=== PATIENT | female | born 2000 | race American Indian/Alaskan Native ===

== ENCOUNTER 2019-05-30 12:00 | Observation (INO) | payer OTHER ==
[2019-05-30 12:04] VITALS: BP 131/83
--- NOTE | 2019-05-30 12:08 | Event Note ---
ED Screening Note Date of service: 05/30/19 Time: 12:06 ED Screening Note: Pt complains of dizziness, blurred vision, and pins and needles feeling x 5 days +CALDWELL hx of MS-states feels like her normal flare states not currently on meds for MS This initial assessment/diagnostic orders/clinical plan/treatment(s) is/are subject to change based on patients health status, clinical progression and re- assessment by fellow clinical providers in the ED. Further treatment and workup at subsequent clinical providers discretion. Patient/guardian urged not to elope from the ED as their condition may be serious if not clinically assessed and managed. Initial orders include: labs
[2019-05-30 12:32] LABS: Basophils % (Auto) 0.8 % (0.0-1.8); Eosinophils # (Auto) 0.2 K/mm3 (0.0-0.4); Eosinophils % (Auto) 2.6 % (0.0-4.3); Hematocrit 40.1 % (30.3-42.9); Hemoglobin 13.5 gm/dl (10.1-14.3); Lymphocytes # (Auto) 1.6 K/mm3 (1.2-5.4); Lymphocytes % (Auto) 25.9 % (13.4-35.0); Mean Corpuscular HGB Conc 34 % (30-34); Mean Corpuscular Volume 87 fl (79-97); Monocytes # (Auto) 0.4 K/mm3 (0.0-0.8); Monocytes % (Auto) 6.4 % (0.0-7.3); Platelet Count 300 K/mm3 (140-440); Red Blood Count 4.64 M/mm3 (3.65-5.03); Red Cell Distribution Width 16.1 % (13.2-15.2)
[2019-05-30 12:47] LABS: Alanine Aminotransferase 9 units/L (7-56); Albumin 4.5 g/dL (3.9-5); BUN/Creatinine Ratio 19; Blood Urea Nitrogen 17 mg/dL (7-17); Calcium 9.6 mg/dL (8.4-10.2); Hemolysis Index 11
--- NOTE | 2019-05-30 15:10 | Emergency Department Report ---
ED General Adult HPI - General Chief complaint: Dizziness Stated complaint: DIZZINESS/BLURRED VISION/MIGRAINE Time Seen by Provider: 05/30/19 12:05 Source: patient Mode of arrival: Ambulatory Limitations: No Limitations - History of Present Illness Initial comments: CC: "I am having a relapse of my MS." HPI: Seble is a 19 yo female with hx of multiple sclerosis. She was diagnosed one year ago. Recently moved from [place]. She does not havea neurologist in the [place] area. Treated at OSH in February with prednisone and tramadol, She did not improve when h had similar symptoms at that time. For the past 5 days,she has had headache, blurry vision, body burning, lightheadedness, tremors. she requests methylprednisolone. Mild frontal dull headache gradual onset typical of previous headaches. -: Gradual, days(s) (5) Location: head, left, right, upper extremity, lower extremity Severity scale (0 -10): 8 Quality: burning (burning body pain), dull (dull headache) Consistency: constant Improves with: other (methylprednisolone in the past) Worsens with: none Associated Symptoms: headaches, malaise, other (lightheadedness blurred vision) Treatments Prior to Arrival: none - Related Data Allergies Allergy/AdvReac Type Severity Reaction Status Date / Time No Known Allergies Allergy Unverified 05/30/19 12:04 ED Review of Systems ROS: Stated complaint: DIZZINESS/BLURRED VISION/MIGRAINE Other details as noted in HPI Comment: All other systems reviewed and negative Constitutional: malaise. denies: fever Respiratory: denies: cough Cardiovascular: denies: chest pain Gastrointestinal: denies: abdominal pain, nausea, vomiting Neurological: headache, paresthesias ED Past Medical Hx - Past Medical History Previous Medical History?: Yes Additional medical history: Multiple Sclerosis - Surgical History Past Surgical History?: No - Social History Smoking Status: Never Smoker Substance Use Type: Marijuana ED Physical Exam - General Limitations: No Limitations General appearance: alert, in no apparent distress - Head Head exam: Present: atraumatic, normocephalic - Eye Eye exam: Present: normal appearance - ENT ENT exam: Present: mucous membranes moist - Neck Neck exam: Present: normal inspection, full ROM - Respiratory Respiratory exam: Present: normal lung sounds bilaterally. Absent: respiratory distress, wheezes, rales, rhonchi - Cardiovascular Cardiovascular Exam: Present: regular rate, normal rhythm, normal heart sounds. Absent: systolic murmur, diastolic murmur, rubs, gallop - GI/Abdominal GI/Abdominal exam: Present: soft, normal bowel sounds. Absent: distended, tenderness, guarding, rebound - Extremities Exam Extremities exam: Present: normal inspection - Neurological Exam Neurological exam: Present: alert, oriented X3, CN II-XII intact, normal gait. Absent: motor sensory deficit - Psychiatric Psychiatric exam: Present: normal affect, normal mood - Skin Skin exam: Present: warm, dry, intact, normal color. Absent: rash ED Course Vital Signs 05/30/19 12:03 Temperature 98.4 F Pulse Rate 86 Respiratory 16 Rate Blood Pressure 131/83 O2 Sat by Pulse 100 Oximetry ED Medical Decision Making - Lab Data Result diagrams: 05/30/19 12:11 05/30/19 12:11 Laboratory Results - last 24 hr 05/30/19 05/30/19 12:11 12:11 WBC 6.0 RBC 4.64 Hgb 13.5 Hct 40.1 MCV 87 MCH 29 MCHC 34 RDW 16.1 H Plt Count 300 Lymph % (Auto) 25.9 [place] % (Auto) 6.4 Eos % (Auto) 2.6 Baso % (Auto) 0.8 Lymph # 1.6 [place] # 0.4 Eos # 0.2 Baso # 0.0 Seg Neutrophils % 64.3 Seg Neutrophils # 3.9 Sodium 138 Potassium 4.0 Chloride 103.4 Carbon Dioxide 22 Anion Gap 17 BUN 17 Creatinine 0.9 Estimated GFR > 60 BUN/Creatinine Ratio 19 Glucose 81 Calcium 9.6 Total Bilirubin 0.30 AST 19 ALT 9 Alkaline Phosphatase 52 Total Protein 7.9 Albumin 4.5 Albumin/Globulin Ratio 1.3 - Medical Decision Making Seble presents with exacerbation of multiple sclerosis. She will be admitted to the hospitalist service for high-dose IV steroid therapy. Critical care attestation.: If time is entered above; I have spent that time in minutes in the direct care of this critically ill patient, excluding procedure time. ED Disposition Clinical Impression: Exacerbation of multiple sclerosis Disposition: TO HOME OR SELFCARE Is pt being admited?: Yes Does the pt Need Aspirin: No Condition: Stable
--- NOTE | 2019-05-30 15:59 | Event Note ---
Date: 05/30/19 19-year-old with history of multiple sclerosis --no residual deficits comes in for blurry vision nausea and slight weakness in both lower extremities. On examination Vision is normal Power is 5 x 5 in all 4 extremities Gait is normal Walks slowly No scanning speech No diplopia Discharge diagnosis Possible MS exacerbation--- but more unlikely Will give benefit of doubt IV Solu-Medrol 1 g x 1 dose Tapering dose of prednisone 40 mg for first 5 days followed by 30 mg of prednisone for the next 5 days followed by 20 mg of prednisone for the next 5 days followed by 10 mg of prednisone for the next 5 days and then stop. Follow-[facility] with [facility] and Dr. Kalin quezada
[2019-05-30] MEDS ORDERED: methylPREDNISolone Sod Suc 1,000 MG in SODIUM CHLORIDE 0.9% 250ML 250 ML IV ONE (16:00)
== END 2019-05-30 17:29 | disposition home or self-care (01) ==
LOC: ED 12:00 → 3A 15:02 → INTOOBSV 15:02 → 3A 15:48
PROVIDERS: ADMIT Internal Medicine; ATTEND Internal Medicine
DX: G35 Multiple sclerosis (principal); R42 Dizziness and giddiness; F12.90 Cannabis use, unspecified, uncomplicated
CPT/HCPCS: 36415; 80053; 85025; 96365; 99284; G0378; J2930; J7050; 99283

== ENCOUNTER 2019-06-01 12:11 | Inpatient (IN) | payer OTHER ==
--- NOTE | 2019-06-01 13:47 | Event Note ---
ED Screening Note ED Screening Note: 19 y/o female with pmh of MS presents to ED c/o worsening flare up was seen a couple days ago and refused admission and now wants to accept all recommend treatments. symptoms have evolved to include chest pain and sob in relation to the blurred vision, weakness, dizziness, and myalgia. The patient was seen in triage for as above Labs/imaging ordered to evaluate for a cause of this complaint. Vital signs reviewed, patient awake and alert in NAD. This initial assessment/diagnostic orders/clinical plan/treatment(s) is/are subject to change based on patients health status, clinical progression and re- assessment by fellow clinical providers in the ED. Further treatment and workup at subsequent clinical providers discretion. Patient/guardian urged not to elope from the ED as their condition may be serious if not clinically assessed and managed. Initial orders include:
--- NOTE | 2019-06-01 15:00 | Emergency Department Report ---
ED Chest Pain HPI - General Chief Complaint: Chest Pain Stated Complaint: MS RELASPED/CHEST PAIN Time Seen by Provider: 06/01/19 13:44 Source: patient Mode of arrival: Ambulatory Limitations: No Limitations - History of Present Illness Initial Comments: This is a pleasant 19-year-old female with past medical history of multiple sclerosis which was diagnosed June 2018 who presents the emergency department with a chief complaint of headache, dizziness, blurred vision, tremors and paresthesias and a burning sensation to her body. She reports these symptoms are typical for her normal MS flare symptoms. She just recently relocated from [place] and does not have a neurologist established locally yet. She was seen in the ER a few days ago and physician he saw her recommend admission however the patient declined and wanted to go home. Patient states she thinks she should've state due to her persistent symptoms. She states that she is having new symptoms of pain substernally in her chest that she describes as pressure. She denies any radiating pain. States pain is aggravated with exertion and is associated nausea. - Related Data Allergies Allergy/AdvReac Type Severity Reaction Status Date / Time No Known Allergies Allergy Unverified 05/30/19 12:04 Heart Score - HEART Score History: Slightly suspicious EKG: Normal Age: < 45 Risk factors: No known risk factors Troponin: < normal limit HEART Score: 0 ED Review of Systems ROS: Stated complaint: MS RELASPED/CHEST PAIN Other details as noted in HPI Comment: All other systems reviewed and negative Constitutional: denies: chills, fever Eyes: denies: eye pain, eye discharge, vision change ENT: denies: ear pain, throat pain Respiratory: denies: cough, shortness of breath, wheezing Cardiovascular: denies: chest pain, palpitations Endocrine: no symptoms reported Gastrointestinal: denies: abdominal pain, nausea, diarrhea Genitourinary: denies: urgency, dysuria, discharge Musculoskeletal: denies: joint swelling, arthralgia Skin: denies: rash, lesions Neurological: as per HPI, headache, weakness, paresthesias Psychiatric: denies: anxiety, depression Hematological/Lymphatic: denies: easy bleeding, easy bruising ED Past Medical Hx - Past Medical History Previous Medical History?: Yes Additional medical history: Multiple Sclerosis. fibroids - Surgical History Past Surgical History?: Yes Additional Surgical History: myomectomy - Social History Smoking Status: Current Some Day Smoker Substance Use Type: Alcohol ED Physical Exam - General Limitations: No Limitations General appearance: alert, in no apparent distress - Head Head exam: Present: atraumatic, normocephalic - Eye Eye exam: Present: normal appearance, PERRL, EOMI Pupils: Present: normal accommodation - ENT ENT exam: Present: normal exam, normal orophraynx, mucous membranes moist - Neck Neck exam: Present: normal inspection, full ROM. Absent: tenderness, meningismus - Respiratory Respiratory exam: Present: normal lung sounds bilaterally. Absent: respiratory distress, wheezes, rales, rhonchi, stridor - Cardiovascular Cardiovascular Exam: Present: regular rate, normal rhythm, normal heart sounds. Absent: systolic murmur, diastolic murmur, rubs, gallop - GI/Abdominal GI/Abdominal exam: Present: soft, normal bowel sounds. Absent: distended, tenderness, guarding, rebound, rigid - Extremities Exam Extremities exam: Present: normal inspection, full ROM, calf tenderness (negative sophie sign bilaterally ). Absent: tenderness - Back Exam Back exam: Present: normal inspection, full ROM. Absent: tenderness, CVA tenderness (R), CVA tenderness (L) - Neurological Exam Neurological exam: Present: alert, oriented X3, CN II-XII intact, other (normal sensation to the upper and lower extremities. reported weakness to the lower extremities but no drift. unable to tolerate resistive ROM. ) - Psychiatric Psychiatric exam: Present: normal affect, normal mood - Skin Skin exam: Present: warm, dry, intact, normal color. Absent: rash ED Course Vital Signs 06/01/19 13:42 Temperature 98.2 F Pulse Rate 83 Respiratory 18 Rate Blood Pressure 123/71 O2 Sat by Pulse 100 Oximetry PAUL score - Paul Score Age > 65: (0) No Aspirin use within the Past 7 Days: (0) No 3 or more CAD Risk Factors: (0) No 2 or more Angina events in past 24 hrs: (0) No Known CAD with more than 50% Stenosis: (0) No Elevated Cardiac Markers: (0) No ST Deviation Greater than 0.5mm: (0) No PAUL Score: 0 ED Medical Decision Making - Lab Data Result diagrams: 06/01/19 15:07 06/01/19 15:07 - EKG Data -: EKG Interpreted by Ks EKG shows normal: sinus rhythm Rate: normal - EKG Data When compared to previous EKG there are: previous EKG unavailable 06/01/19 15:15 EKG performed at 12:21 pm normal sinus rhythm, no acute ST or T-wave abnormalities, no STEMI, normal axis, normal intervals. - Radiology Data Radiology results: report reviewed Patient: ELAN LOCKETT MR#: [id number] : 2000 Acct:[id number] Age/Sex: 19 / F ADM Date: 06/01/19 Loc: ED Attending Dr: Ordering Physician: SHU SEGUNDO Date of Service: 06/01/19 Procedure(s): CT head/brain wo con Accession Number(s): [id number] cc: SHU SEGUNDO CT HEAD WITHOUT CONTRAST INDICATION / CLINICAL INFORMATION: weakness, MS, blurred vision. TECHNIQUE: Axial imaging performed from the skull apex through the skull base without the use of contrast. Sagittal and coronal reformatted images. All CT scans at this location are performed using CT dose reduction for ALARA by means of automated exposure control. COMPARISON: None available. FINDINGS: CEREBRAL PARENCHYMA: There is a solitary subtle centimeter area of diminished attenuation in the right parietal white matter on image 36, series 2. This is a nonspecific finding but could be related to demyelination. The remaining brain parenchyma demonstrates normal density. HEMORRHAGE: None. EXTRA-AXIAL SPACES: Normal in size and morphology for the patient's age. VENTRICULAR SYSTEM: Normal in size and morphology for the patient's age. MIDLINE SHIFT OR HERNIATION: None. CEREBELLUM / BRAINSTEM: No significant abnormality. CALVARIUM: No significant abnormality. ORBITS: Normal as visualized. PARANASAL SINUSES / MASTOID AIR CELLS: Normal as visualized. SOFT TISSUES of HEAD: No significant abnormality. ADDITIONAL FINDINGS: None. IMPRESSION: Solitary 1 cm area of diminished attenuation in the right parietal white matter. This could represent focal demyelination although other etiologies are not entirely exc luded. Please correlate with the patient. This could be further evaluated with MRI with and without contrast if needed. Signer Name: Dung Vasquez Jr, MD Signed: 06/01/2019 4:25 PM Workstation Name: [id number] Transcribed By: TTR Dictated By: DUNG VASQUEZ JR, MD Electronically Authenticated By: DUNG VASQUEZ JR, MD Signed Date/Time: 06/01/19 1625 ge/Sex: 19 / F ADM Date: 06/01/19 Loc: ED Attending Dr: Ordering Physician: SHU GARRISON Date of Service: 06/01/19 Procedure(s): XR chest routine 2V Accession Number(s): [id number] cc: SHU GARRISON Fluoro Time In Minutes: CHEST 2 VIEWS INDICATION / CLINICAL INFORMATION: Chest Pain. COMPARISON: None available. FINDINGS: SUPPORT DEVICES: None. HEART / MEDIASTINUM: No significant abnormality. LUNGS / PLEURA: No significant pulmonary or pleural abnormality. No pneumothorax. ADDITIONAL FINDINGS: No significant additional findings. IMPRESSION: 1. No acute findings. Signer Name: Nguyễn Garcia MD Signed: 06/01/2019 4:46 PM Workstation Name: [id number] Transcribed By: JAMILA Dictated By: Nguyễn Garcia MD Electronically Authenticated By: Nguyễn Garcia MD Signed Date/Time: 06/01/19 5496 - Medical Decision Making Patient presented with classic symptoms of MS flare including blurry vision, generalized weakness worse in the lower extremities, she was seen in the ER 2 days ago given Solu-Medrol and outpatient steroid taper however reports she is feeling worse. She also reports she is also having chest pain today. She is technically PERC negative however due to her reporting she had pain with breathing and did order a d-dimer that was negative. Patient had a unremarkable EKG with no signs of acute ischemia and negative troponin and her heart score was low making acute ACS event unlikely. Patient had no signs of pneumothorax or pneumonia on x-ray. There is no tearing or ripping pain to the back, history of connective tissue disease, history smoking or widening mediastinum making aortic dissection unlikely. Normal equal radial pulses making this unlikely. Her neurologic exam was relatively normal other than mild weakness bilateral extremity is. Discussed with hospitalist Dr. Humphrey who agreed to bring the patient in the hospital for steroids and further workup/neurology consultation. Patient is agreeable to this plan and all questions were answered. - Differential Diagnosis MS flare, PE, acs Critical care attestation.: If time is entered above; I have spent that time in minutes in the direct care of this critically ill patient, excluding procedure time. ED Disposition Clinical Impression: Exacerbation of multiple sclerosis, Acute nonspecific chest pain with low risk of coronary artery disease Disposition: [id number] OP ADMIT IP TO THIS HOSP Is pt being admited?: Yes Condition: Stable
[2019-06-01 15:20] LABS: Basophils % (Auto) 0.2 % (0.0-1.8); Hematocrit 37.3 % (30.3-42.9); Hemoglobin 12.4 gm/dl (10.1-14.3); Lymphocytes # (Auto) 1.1 K/mm3 (1.2-5.4); Lymphocytes % (Auto) 8.8 % (13.4-35.0); Mean Corpuscular HGB Conc 33 % (30-34); Mean Corpuscular Volume 87 fl (79-97); Monocytes # (Auto) 0.6 K/mm3 (0.0-0.8); Monocytes % (Auto) 5.1 % (0.0-7.3); Platelet Count 299 K/mm3 (140-440); Red Blood Count 4.32 M/mm3 (3.65-5.03)
[2019-06-01 15:23] LABS: Bilirubin,Urine NEG (Negative); Blood,Urine MOD (Negative); Color,Urine Yellow (Yellow); Mucus,Urine 1+ /HPF; Protein,Urine <15 mg/dL mg/dL (Negative); Urobilinogen,Urine < 2.0 mg/dL (<2.0)
[2019-06-01 15:36] LABS: HCG Qualitative,Urine Negative (Negative)
[2019-06-01 15:44] LABS: Alanine Aminotransferase 8 units/L (7-56); Albumin 4.2 g/dL (3.9-5); BUN/Creatinine Ratio 20; Blood Urea Nitrogen 16 mg/dL (7-17); Calcium 9.5 mg/dL (8.4-10.2); Hemolysis Index 10
--- NOTE | 2019-06-01 16:29 | Cat Scan Report ---
CT HEAD WITHOUT CONTRAST INDICATION / CLINICAL INFORMATION: weakness, MS, blurred vision. TECHNIQUE: Axial imaging performed from the skull apex through the skull base without the use of cont rast. Sagittal and coronal reformatted images. All CT scans at this location are performed using CT dose reduction for ALARA by means of automated exposure control. COMPARISON: None available. FINDINGS: CEREBRAL PARENCHYMA: There is a solitary subtle centimeter area of diminished attenuation in the righ t parietal white matter on image 36, series 2. This is a nonspecific finding but could be related to demyelination. The remaining brain parenchyma demonstrates normal density. HEMORRHAGE: None. EXTRA-AXIAL SPACES: Normal in size and morphology for the patient's age. VENTRICULAR SYSTEM: Normal in size and morphology for the patient's age. MIDLINE SHIFT OR HERNIATION: None. CEREBELLUM / BRAINSTEM: No significant abnormality. CALVARIUM: No significant abnormality. ORBITS: Normal as visualized. PARANASAL SINUSES / MASTOID AIR CELLS: Normal as visualized. SOFT TISSUES of HEAD: No significant abnormality. ADDITIONAL FINDINGS: None. IMPRESSION: Solitary 1 cm area of diminished attenuation in the right parietal white matter. This could represent focal demyelination although other etiologies are not entirely excluded. Please correlate with the p atient. This could be further evaluated with MRI with and without contrast if needed. Signer Name: Dung Vasquez Jr, MD Signed: 06/01/2019 4:25 PM Workstation Name: [id number]
--- NOTE | 2019-06-01 16:51 | XRay Report ---
CHEST 2 VIEWS INDICATION / CLINICAL INFORMATION: Chest Pain. COMPARISON: None available. FINDINGS: SUPPORT DEVICES: None. HEART / MEDIASTINUM: No significant abnormality. LUNGS / PLEURA: No significant pulmonary or pleural abnormality. No pneumothorax. ADDITIONAL FINDINGS: No significant additional findings. IMPRESSION: 1. No acute findings. Signer Name: Nguyễn Garcia MD Signed: 06/01/2019 4:46 PM Workstation Name: [id number]
[2019-06-01] MEDS ORDERED: ONDANSETRON 4 MG/2 ML INJ IV PRN (22:07)
[2019-06-01] MEDS: HEPARIN 5,000 UNIT/1 ML VIAL SUB-Q SCH (23:26)
[2019-06-01] MEDS: FAMOTIDINE 20 MG/2 ML INJ IV SCH (23:26)
[2019-06-01] MEDS: D5W/0.9% NACL 1,000 ML IV SCH (23:29)
[2019-06-02 07:23] LABS: Basophils % (Auto) 0.3 % (0.0-1.8); Eosinophils # (Auto) 0.1 K/mm3 (0.0-0.4); Eosinophils % (Auto) 0.7 % (0.0-4.3); Hematocrit 33.7 % (30.3-42.9); Hemoglobin 11.4 gm/dl (10.1-14.3); Lymphocytes # (Auto) 2.9 K/mm3 (1.2-5.4); Lymphocytes % (Auto) 34.6 % (13.4-35.0); Mean Corpuscular HGB Conc 34 % (30-34); Mean Corpuscular Volume 86 fl (79-97); Monocytes # (Auto) 0.7 K/mm3 (0.0-0.8); Platelet Count 267 K/mm3 (140-440); Red Blood Count 3.92 M/mm3 (3.65-5.03); Red Cell Distribution Width 16.5 % (13.2-15.2)
[2019-06-02 07:44] LABS: Alanine Aminotransferase 7 units/L (7-56); Albumin 3.4 g/dL (3.9-5); BUN/Creatinine Ratio 20; Blood Urea Nitrogen 16 mg/dL (7-17); Calcium 8.6 mg/dL (8.4-10.2); Hemolysis Index 7
[2019-06-02] MEDS ORDERED: methylPREDNISolone Sod Succinate 125 MG/2 ML INJ IV SCH (08:00)
--- NOTE | 2019-06-02 10:24 | Consultation ---
History of Present Illness Consult date: 06/02/19 Reason for Consult: MS ? History of present illness: This is 19 years old female presented to hospital with recurrent blurred vision and tremor both upper and dizziness symptoms started 7 days ago according to her her problem go back to last when she was diagnosed with MS in [place] according to her she had MRI brain and LP and was started on tecfedera but she could not take due to side of nausea she stopped medication after a month , she denied follow up with neurology , according to her since last year she had at least 6 relapse all same she got X3 treatment with IV steroid Medications and Allergies Allergies Allergy/AdvReac Type Severity Reaction Status Date / Time No Known Allergies Allergy Unverified 05/30/19 12:04 Home Medications Medication Instructions Recorded Confirmed Last Taken Type No Known Home Medications [No 06/01/19 06/01/19 Unknown History Reported Home Medications] Active Meds: Active Medications Acetaminophen (Tylenol) 650 mg PO Q4H PRN PRN Reason: Pain MILD(1-3)/Fever >100.5/[place]LL Famotidine (Pepcid) 20 mg IV BID [facility] Last Admin: 06/01/19 23:26 Dose: 20 mg Documented by: Heparin Sodium (Porcine) (Heparin) 5,000 unit SUB-Q Q12HR [facility] Last Admin: 06/01/19 23:26 Dose: 5,000 unit Documented by: Hydromorphone HCl (Dilaudid) 0.5 mg IV Q3H PRN PRN Reason: Pain , Severe (7-10) Dextrose/Sodium Chloride (D5ns) 1,000 mls @ 75 mls/hr IV DIRECT [facility] Last Admin: 06/01/19 23:29 Dose: 75 mls/hr Documented by: Methylprednisolone Sodium Succinate 1,000 mg/ Sodium Chloride 250 mls @ 250 mls/hr IV Q24H [facility] Ondansetron HCl (Zofran) 4 mg IV Q8H PRN PRN Reason: Nausea And Vomiting Sodium Chloride (Sodium Chloride Flush Syringe 10 Ml) 10 ml IV BID [facility] Last Admin: 06/01/19 23:30 Dose: 10 ml Documented by: Sodium Chloride (Sodium Chloride Flush Syringe 10 Ml) 10 ml IV PRN PRN PRN Reason: LINE FLUSH Review of Systems Constitutional: weakness Eyes: bilateral: blurred vision Neurological: parathesias (left side), tremors (bilteral upper), balance difficulties (feel dizzy and unsteady) Physical Examination - Vital Signs Vital Signs: Vital Signs Temp Pulse Resp BP Pulse Ox 98.2 F 83 18 123/71 100 06/01/19 13:42 06/01/19 13:42 06/01/19 13:42 06/01/19 13:42 06/01/19 13:42 - Constitutional General appearance: comfortable - EENT EENT: Present: PERRL - Respiratory Respiratory: Present: chest non-tender - Cardiovascular Cardiovascular: Present: regular rate, no murmurs Extremities: Present: no peripheral edema bilatateraly, no clubbing, cyanosis, no inflammation, no ischemia or petechiae - Gastrointestinal Gastrointestinal: Present: normoactive bowel sounds - Integumentary Integumentary: Present: normal - Neurologic Cranial nerve examination: PERRL, EOMI Speech examination: intact Sensorimotor examination: other (subjective decrease sensation left side upper and lower as well as face ) Motor examination - right side: 4/5: biceps, triceps, wrist flexion, wrist extension, can sterilizer, hip flexors, knee extensors, dorsiflexion, toe extension (EHL), plantarflexion Motor examination - left side: 4/5: biceps, triceps, wrist flexion, wrist extension, can sterilizer, hip flexors, knee extensors, dorsiflexion, toe extension (EHL), plantarflexion Reflexes: 2+: ankle, bicep, knee, tricep Cerebellar examination: other (gait is steady) Results - Laboratory Findings CBC and BMP: 06/02/19 05:30 06/02/19 05:30 Abnormal Lab Findings: Abnormal Labs 06/01/19 06/01/19 06/02/19 15:07 15:07 05:30 WBC 12.7 H RDW 17.0 H 16.5 H Lymph % (Auto) 8.8 L [place] % (Auto) 8.0 H Lymph # 1.1 L Seg Neutrophils % 85.9 H Seg Neutrophils # 10.9 H Chloride 107.5 H Carbon Dioxide 21 L Glucose 103 H Total Protein Albumin 06/02/19 05:30 WBC RDW Lymph % (Auto) [place] % (Auto) Lymph # Seg Neutrophils % Seg Neutrophils # Chloride 109.6 H Carbon Dioxide 21 L Glucose Total Protein 5.9 L Albumin 3.4 L Assessment and Plan 1- This is 19 ys old female presented with complain of bilteral blurred vision with no eye pain or visual impairment she is with left sided decrease sensation no weakness and gait is steady she is complain of tremor !!! according to her she was diagnosed with MS over a year ago 06/2018 started on tecfedera but she could not tolerate due to side effect of nausea. 2- Recurrent non specific symptoms similar to above X 6 times last year she got X3 treatment with steroid IV 3- Recreational drug intake 4- test is negative. PLAN 1- Urine drug screen 2- MRI brain and cervical/dorsal spine with and without qd. 3- ESR,BARBARA,lyme, [place] ,HIV,b12,folate,VitD ,SPEP,SIEP 4- Consider steroid treatment after MRI brain? 5- instructed no recreational drug 6- Need follow up with neurology will follow
[2019-06-02] MEDS: HEPARIN 5,000 UNIT/1 ML VIAL SUB-Q SCH ×2 (11:16→22:05)
[2019-06-02] MEDS: FAMOTIDINE 20 MG/2 ML INJ IV SCH ×2 (11:17→23:05)
[2019-06-02] MEDS: methylPREDNISolone Sod Suc 1,000 MG in SODIUM CHLORIDE 0.9% 250ML 250 ML IV SCH (11:31)
[2019-06-02] MEDS: D5W/0.9% NACL 1,000 ML IV SCH (13:52)
--- NOTE | 2019-06-02 15:30 | History and Physical Report ---
History of Present Illness Date of examination: 06/01/19 Date of admission: 06/01/19 16:53 Chief complaint: Weakness in both lower extremities-3/4 days History of present illness: 19-year-old female with past medical history of multiple sclerosis which was diagnosed June 2018 presents the emergency department with a chief complaint of headache, dizziness, blurred vision, tremors and paresthesias and a burning sensation to her body. She reports these symptoms are typical for her normal MS flare symptoms. She just recently relocated from [place] and does not have a neurologist established locally yet. She was seen in the ER a few days ago and physician who saw her recommend admission however the patient declined and wanted to go home. Patient states she thinks she should've stayed due to her persistent symptoms. She states that she is having new symptoms of pain substernally in her chest that she describes as pressure. She denies any radiating pain. States pain is aggravated with exertion and is associated nausea. she was diagnosed with MS in [place]. According to her she had MRI brain and LP and was started on tecfedera but she could not take due to side of nausea she stopped medication after a month , she denied follow up with neurology , according to her since last year she had at least 6 relapse all same she got X3 treatment with IV steroid . Past Medical History Previous Medical History?: Yes Additional medical history: Multiple Sclerosis. fibroids Surgical History Past Surgical History?: Yes Additional Surgical History: myomectomy Social History Smoking Status: Current Some Day Smoker Substance Use Type: Alcohol Family History Htn Review of Systems ROS: Stated complaint: MS RELASPED/CHEST PAIN Other details as noted in HPI Comment: All other systems reviewed and negative Constitutional: denies: chills, fever Eyes: denies: eye pain, eye discharge, vision change ENT: denies: ear pain, throat pain Respiratory: denies: cough, shortness of breath, wheezing Cardiovascular: denies: chest pain, palpitations Endocrine: no symptoms reported Gastrointestinal: denies: abdominal pain, nausea, diarrhea Genitourinary: denies: urgency, dysuria, discharge Musculoskeletal: denies: joint swelling, arthralgia,weakness in both lower extremities. Skin: denies: rash, lesions Neurological: as per HPI, headache, weakness, paresthesias Psychiatric: denies: anxiety, depression Hematological/Lymphatic: denies: easy bleeding, easy bruising Medications and Allergies Allergies Allergy/AdvReac Type Severity Reaction Status Date / Time No Known Allergies Allergy Unverified 05/30/19 12:04 Home Medications Medication Instructions Recorded Confirmed Last Taken Type No Known Home Medications [No 06/01/19 06/01/19 Unknown History Reported Home Medications] Active Meds: Active Medications Acetaminophen (Tylenol) 650 mg PO Q4H PRN PRN Reason: Pain MILD(1-3)/Fever >100.5/[place] Famotidine (Pepcid) 20 mg IV BID [facility] Last Admin: 06/02/19 11:17 Dose: 20 mg Documented by: Heparin Sodium (Porcine) (Heparin) 5,000 unit SUB-Q Q12HR [facility] Last Admin: 06/02/19 11:16 Dose: 5,000 unit Documented by: Hydromorphone HCl (Dilaudid) 0.5 mg IV Q3H PRN PRN Reason: Pain , Severe (7-10) Dextrose/Sodium Chloride (D5ns) 1,000 mls @ 75 mls/hr IV DIRECT [facility] Last Admin: 06/02/19 13:52 Dose: 75 mls/hr Documented by: Methylprednisolone Sodium Succinate 1,000 mg/ Sodium Chloride 250 mls @ 250 mls/hr IV Q24H [facility] Last Admin: 06/02/19 11:31 Dose: 250 mls/hr Documented by: Ondansetron HCl (Zofran) 4 mg IV Q8H PRN PRN Reason: Nausea And Vomiting Sodium Chloride (Sodium Chloride Flush Syringe 10 Ml) 10 ml IV BID [facility] Last Admin: 06/02/19 11:18 Dose: 10 ml Documented by: Sodium Chloride (Sodium Chloride Flush Syringe 10 Ml) 10 ml IV PRN PRN PRN Reason: LINE FLUSH Exam - Constitutional Vitals: Temp Pulse Resp BP Pulse Ox 98.2 F 68 16 98/45 98 06/02/19 05:17 06/02/19 05:17 06/02/19 05:17 06/02/19 05:17 06/02/19 05:17 General appearance: Present: no acute distress, well-nourished - EENT Eyes: Present: PERRL ENT: hearing intact, clear oral mucosa - Neck Neck: Present: supple, normal ROM - Respiratory Respiratory effort: normal Respiratory: bilateral: CTA - Cardiovascular Heart rate: 78 Rhythm: regular Heart Sounds: Present: S1 & S2. Absent: rub, click - Extremities Extremities: no ischemia, pulses intact, pulses symmetrical, No edema Extremity abnormal: other (Power diminished in both lower extremities.4/5 power) Peripheral Pulses: within normal limits - Abdominal General gastrointestinal: Present: soft, non-tender, non-distended, normal bowel sounds Female genitourinary: Present: normal - Integumentary Integumentary: Present: clear, warm, dry - Musculoskeletal Musculoskeletal: gait normal, strength equal bilaterally - Psychiatric Psychiatric: appropriate mood/affect, intact judgment & insight - Neurologic Neurologic: CNII-XII intact, moves all extremities, other (power both lower extremities is diminished) ADARSH score - Adarsh Score Age > 65: (0) No Aspirin use within the Past 7 Days: (0) No 3 or more CAD Risk Factors: (0) No 2 or more Angina events in past 24 hrs: (0) No Known CAD with more than 50% Stenosis: (0) No Elevated Cardiac Markers: (0) No ST Deviation Greater than 0.5mm: (0) No ADARSH Score: 0 Results - Labs CBC & Chem 7: 06/02/19 05:30 06/02/19 05:30 Labs: Laboratory Last Values WBC 8.4 K/mm3 (4.5-11.0) 06/02/19 05:30 RBC 3.92 M/mm3 (3.65-5.03) 06/02/19 05:30 Hgb 11.4 gm/dl (10.1-14.3) 06/02/19 05:30 Hct 33.7 % (30.3-42.9) 06/02/19 05:30 MCV 86 fl (79-97) 06/02/19 05:30 MCH 29 pg (28-32) 06/02/19 05:30 MCHC 34 % (30-34) 06/02/19 05:30 RDW 16.5 % (13.2-15.2) H 06/02/19 05:30 Plt Count 267 K/mm3 (140-440) 06/02/19 05:30 Lymph % (Auto) 34.6 % (13.4-35.0) 06/02/19 05:30 [place] % (Auto) 8.0 % (0.0-7.3) H 06/02/19 05:30 Eos % (Auto) 0.7 % (0.0-4.3) 06/02/19 05:30 Baso % (Auto) 0.3 % (0.0-1.8) 06/02/19 05:30 Lymph # 2.9 K/mm3 (1.2-5.4) 06/02/19 05:30 [place] # 0.7 K/mm3 (0.0-0.8) 06/02/19 05:30 Eos # 0.1 K/mm3 (0.0-0.4) 06/02/19 05:30 Baso # 0.0 K/mm3 (0.0-0.1) 06/02/19 05:30 Seg Neutrophils % 56.4 % (40.0-70.0) 06/02/19 05:30 Seg Neutrophils # 4.7 K/mm3 (1.8-7.7) 06/02/19 05:30 ESR 4 mm/Hr (0-20) 06/02/19 12:00 D-Dimer 224.77 ng/mlDDU (0-234) 06/01/19 15:32 Sodium 143 mmol/L (137-145) 06/02/19 05:30 Potassium 3.8 mmol/L (3.6-5.0) 06/02/19 05:30 Chloride 109.6 mmol/L (98-107) H 06/02/19 05:30 Carbon Dioxide 21 mmol/L (22-30) L 06/02/19 05:30 Anion Gap 16 mmol/L 06/02/19 05:30 BUN 16 mg/dL (7-17) 06/02/19 05:30 Creatinine 0.8 mg/dL (0.7-1.2) 06/02/19 05:30 Estimated GFR > 60 ml/min 06/02/19 05:30 BUN/Creatinine Ratio 20 % 06/02/19 05:30 Glucose 80 mg/dL (65-100) 06/02/19 05:30 Hemoglobin A1c 4.9 % (4-6) 06/02/19 05:30 Calcium 8.6 mg/dL (8.4-10.2) 06/02/19 05:30 Total Bilirubin 0.20 mg/dL (0.1-1.2) 06/02/19 05:30 AST 11 units/L (5-40) 06/02/19 05:30 ALT 7 units/L (7-56) 06/02/19 05:30 Alkaline Phosphatase 41 units/L (35-129) 06/02/19 05:30 Troponin T < 0.010 ng/mL (0.00-0.029) 06/01/19 15:32 Total Protein 5.9 g/dL (6.3-8.2) L 06/02/19 05:30 Albumin 3.4 g/dL (3.9-5) L 06/02/19 05:30 Albumin/Globulin Ratio 1.4 % 06/02/19 05:30 Vitamin B12 261.4 pg/mL (211-911) 06/02/19 12:00 Urine Color Yellow (Yellow) 06/01/19 14:59 Urine Turbidity Clear (Clear) 06/01/19 14:59 Urine pH 6.0 (5.0-7.0) 06/01/19 14:59 Ur Specific [place] 1.029 (1.003-1.030) 06/01/19 14:59 Urine Protein <15 mg/dl mg/dL (Negative) 06/01/19 14:59 Urine Glucose (UA) Neg mg/dL (Negative) 06/01/19 14:59 Urine Ketones Neg mg/dL (Negative) 06/01/19 14:59 Urine Blood Mod (Negative) 06/01/19 14:59 Urine Nitrite Neg (Negative) 06/01/19 14:59 Urine Bilirubin Neg (Negative) 06/01/19 14:59 Urine Urobilinogen < 2.0 mg/dL (<2.0) 06/01/19 14:59 Ur Leukocyte Esterase Neg (Negative) 06/01/19 14:59 Urine WBC (Auto) 1.0 /HPF (0.0-6.0) 06/01/19 14:59 Urine RBC (Auto) 2.0 /HPF (0.0-6.0) 06/01/19 14:59 U Epithel Cells (Auto) 2.0 /HPF (0-13.0) 06/01/19 14:59 Urine Mucus 1+ /HPF 06/01/19 14:59 Urine HCG, Qual Negative (Negative) 06/01/19 14:59 - Imaging and Cardiology Chest x-ray: report reviewed (NAF) Imaging and Cardiology: Head CT IMPRESSION: Solitary 1 cm area of diminished attenuation in the right parietal white matter. This could represent focal demyelination although other etiologies are not entirely excluded. Please correlate with the patient. This could be further evaluated with MRI with and without contrast if needed. Assessment and Plan Advance Directives: Yes (Full code) VTE prophylaxis?: Chemical Plan of care discussed with patient/family: Yes - Patient Problems (1) Exacerbation of multiple sclerosis Current Visit: Yes Status: Acute Plan to address problem: IV solumedrol 1 gm q 24 h x5 days (2) Acute nonspecific chest pain with low risk of coronary artery disease Current Visit: Yes Status: Acute Plan to address problem: No further w/u (3) DVT prophylaxis Current Visit: Yes Status: Acute Plan to address problem: on Heparin and GI prophylaxis
--- NOTE | 2019-06-02 15:45 | Progress Note ---
Assessment and Plan - Patient Problems (1) Exacerbation of multiple sclerosis Current Visit: Yes Status: Acute Plan to address problem: IV solumedrol 1 gm q 24 h x5 days (2) Acute nonspecific chest pain with low risk of coronary artery disease Current Visit: Yes Status: Acute Plan to address problem: No further w/u (3) DVT prophylaxis Current Visit: Yes Status: Acute Plan to address problem: on Heparin and GI prophylaxis Subjective Date of service: 06/02/19 Objective - Constitutional Vitals: Vital Signs - 12hr 06/02/19 05:17 Temperature 98.2 F Pulse Rate 68 Respiratory 16 Rate Blood Pressure 98/45 O2 Sat by Pulse 98 Oximetry General appearance: Present: no acute distress, well-nourished - EENT Eyes: PERRL, EOM intact ENT: hearing intact, clear oral mucosa Ears: bilateral: normal - Neck Neck: supple, normal ROM - Respiratory Respiratory effort: normal Respiratory: bilateral: CTA - Breasts Breasts: normal - Cardiovascular Heart rate: 78 Rhythm: regular Heart Sounds: Present: S1 & S2. Absent: gallop, rub Extremities: pulses intact, No edema, normal color, Full ROM - Gastrointestinal General gastrointestinal: Present: soft, non-tender, non-distended, normal bowel sounds - Genitourinary Female genitourinary: normal - Integumentary Integumentary: clear, warm, dry - Musculoskeletal Musculoskeletal: 1, strength equal bilaterally - Neurologic Neurologic: moves all extremities, other (Power diminished in both lower extremities) - Psychiatric Psychiatric: memory intact, appropriate mood/affect, intact judgment & insight - Labs CBC & Chem 7: 06/02/19 05:30 06/02/19 05:30 Labs: Abnormal lab results 06/01/19 06/02/19 06/02/19 Range/Units 15:07 05:30 05:30 RDW 16.5 H (13.2-15.2) % [place] % (Auto) 8.0 H (0.0-7.3) % Chloride 107.5 H 109.6 H (98-107) mmol/L Carbon Dioxide 21 L 21 L (22-30) mmol/L Glucose 103 H (65-100) mg/dL Total Protein 5.9 L (6.3-8.2) g/dL Albumin 3.4 L (3.9-5) g/dL
--- NOTE | 2019-06-02 23:37 | Magnetic Resonance Report ---
MR cervical spine wo/w con INDICATION / CLINICAL INFORMATION: 19 years Female; MS . TECHNIQUE: Multisequence, multiplanar images of the cervical spine were obtained. Motion artifact. COMPARISON: None available. FINDINGS: CRANIOCERVICAL JUNCTION:No significant abnormality. ALIGNMENT: No significant abnormality. VERTEBRAE:Grossly normal marrow signal and vertebral body height for age. VISUALIZED SPINAL CORD: Cord lesions are identified at C3-C4, C7-T1, and perhaps at C2-3. No definiti ve signs of enhancement seen to suggest acute demyelination. INTERVERTEBRAL DISCS: Grossly normal in height and signal intensity. THDKI-HT-WIOON ANALYSIS: C2-3: No significant abnormality. C3-4: No significant abnormality. C4-5: No significant abnormality. C5-6: Mild disc bulge seen at C5-6, without significant sequela. C6-7: No significant abnormality. C7-T1: No significant abnormality. PARASPINAL SOFT TISSUES: No significant abnormality. ADDITIONAL FINDINGS: None. IMPRESSION: 1. Multiple areas of cord signal abnormality as described above, most consistent appearance with the monitoring disease. Signer Name: Baron Stewart MD, III Signed: 06/02/2019 11:33 PM Workstation Name: [facility]WellpepperRITA [place] [id number]
--- NOTE | 2019-06-02 23:40 | Magnetic Resonance Report ---
. MR thoracic spine wo/w con INDICATION / CLINICAL INFORMATION: 19 years Female; MRI Dorsal spine r/o MS. TECHNIQUE: Multisequence, multiplanar images of the thoracic spine were obtained. Motion artifact COMPARISON: None available. FINDINGS: ALIGNMENT: Normal thoracic kyphosis without significant scoliosis. VERTEBRAE:Grossly normal marrow signal and vertebral body height for age. No significant facet joint disease or osseous foraminal narrowing appreciated. VISUALIZED SPINAL CORD: Multiple areas of cord signal abnormality are seen, with most marked finding seen at the T7 level. Smaller lesions suggested at T4-5, T6-7, T8, and T9 levels. There may be a smal l lesion at T11. Overall, I do not appreciate any definitive signs of abnormal enhancement, although postcontrast imaging is limited by motion. INTERVERTEBRAL DISCS: No significant abnormality. PARASPINAL SOFT TISSUES: No significant abnormality. ADDITIONAL FINDINGS: None. IMPRESSION: 1. Multiple cord lesions seen, consistent with patient's history of possible sclerosis. Signer Name: Baron Stewart MD, III Signed: 06/02/2019 11:36 PM Workstation Name: [email or web address]ENTERJONNIE
--- NOTE | 2019-06-02 23:46 | Magnetic Resonance Report ---
MR brain wo/w con INDICATION / CLINICAL INFORMATION: 19 years Female; MS . TECHNIQUE: Multiplanar, multisequence MR images of the brain were obtained. COMPARISON: None available. FINDINGS: BRAIN / INTRACRANIAL CONTENTS: No acute hemorrhage, mass effect, midline shift, hydrocephalus, or acu te, large territorial infarct. No chronic infarct or atrophy. Significant white matter disease is seen bilaterally, consistent with patient's history of demyelinat ing disease. There is minimal involvement of the white matter of the cerebellar hemispheres as well. Minimal pontine disease noted. There are a few punctate foci of enhancement identified, including the deep white matter of the mid and posterior left cerebral hemisphere, as well as the monie. Acute demy elination in these regions would certainly be a consideration. Finding in the moine might also represe nt a cavernous malformation. CRANIOCERVICAL JUNCTION: No significant abnormality. VASCULAR FLOW-VOIDS: No significant abnormality. ORBITS: No significant abnormality of visualized orbits. SINUSES / MASTOIDS: Mild mucosal thickening seen in the ethmoids, as well as the mastoids. ADDITIONAL FINDINGS: None. IMPRESSION: 1. Significant white matter disease as described above, consistent with patient's history of demyelin ating disease. Areas of presumed, acute demyelination noted. Signer Name: Baron Stewart MD, III Signed: 06/02/2019 11:41 PM Workstation Name: [facility]ITALAmerican Injury Attorney GroupROBERT V[place] [id number]
[2019-06-03 05:50] LABS: Hematocrit 35.9 % (30.3-42.9); Mean Corpuscular HGB Conc 33 % (30-34); Mean Corpuscular Volume 87 fl (79-97); Platelet Count 287 K/mm3 (140-440); Red Blood Count 4.14 M/mm3 (3.65-5.03); Red Cell Distribution Width 16.2 % (13.2-15.2)
[2019-06-03 06:09] LABS: BUN/Creatinine Ratio 20; Blood Urea Nitrogen 10 mg/dL (7-17); Calcium 9.1 mg/dL (8.4-10.2); Hemolysis Index 13
[2019-06-03] MEDS: ACETAMINOPHEN 325 MG TAB PO PRN ×2 (06:22→21:10)
[2019-06-03 07:04] LABS: Basophils % (Manual) 0 % (0.0-1.8); Eosinophils % (Manual) 0 % (0.0-4.3); Platelet Estimate Consistent w Auto; RBC Morphology Normal; Total Cells Counted 100
[2019-06-03] MEDS: methylPREDNISolone Sod Suc 1,000 MG in SODIUM CHLORIDE 0.9% 250ML 250 ML IV SCH (08:30)
[2019-06-03] MEDS: D5W/0.9% NACL 1,000 ML IV SCH ×2 (08:30→22:32)
--- NOTE | 2019-06-03 08:50 | Progress Note ---
Subjective Date of service: 06/03/19 Principal diagnosis: MS Interval history: status unchanged she is in day #2 solmedrol 1000 mg MRI is consistent with MS and active disease noted in brain with involvment of cervical and dorsal spine she could not tolerate tecfedera labs are still pending she is with primary MS and secondary progressive .involve brain and spinal cord pt; need follow up with neurology in a teaching center recommend Dr. Mario Segovia at [place] finish x3-5 days of Iv solmedrol then follow up with neurology review labs add Vit D daily 400 mg will sign off finding is D/W pt. Objective - Vital Sign Vital Signs - 12hr 06/02/19 06/03/19 23:31 05:21 Temperature 98.0 F 98.6 F Pulse Rate 67 60 Respiratory 16 18 Rate Blood Pressure 101/53 Blood Pressure 106/43 [Left] O2 Sat by Pulse 98 97 Oximetry - Laboratory Findings CBC and BMP: 06/03/19 04:37 06/03/19 04:37 Abnormal Lab Findings: Abnormal Labs 06/01/19 06/01/19 06/02/19 15:07 15:07 05:30 WBC 12.7 H RDW 17.0 H 16.5 H Lymph % (Auto) 8.8 L [place] % (Auto) 8.0 H Lymph # 1.1 L Seg Neutrophils % 85.9 H Seg Neuts % (Manual) Lymphocytes % (Manual) Seg Neutrophils # 10.9 H Seg Neutrophils # Man Lymphocytes # (Manual) Chloride 107.5 H Carbon Dioxide 21 L Creatinine Glucose 103 H Total Protein Albumin 06/02/19 06/03/19 06/03/19 05:30 04:37 04:37 WBC 11.6 H RDW 16.2 H Lymph % (Auto) [place] % (Auto) Lymph # Seg Neutrophils % Seg Neuts % (Manual) 90.0 H Lymphocytes % (Manual) 6.0 L Seg Neutrophils # Seg Neutrophils # Man 10.4 H Lymphocytes # (Manual) 0.7 L Chloride 109.6 H Carbon Dioxide 21 L Creatinine 0.5 L Glucose 113 H Total Protein 5.9 L Albumin 3.4 L
[2019-06-03] MEDS: CHOLECALCIFEROL (VIT D3) 400 UNIT TAB PO SCH (10:32)
[2019-06-03] MEDS: HEPARIN 5,000 UNIT/1 ML VIAL SUB-Q SCH ×2 (10:32→21:13)
[2019-06-03] MEDS: FAMOTIDINE 20 MG/2 ML INJ IV SCH ×2 (10:34→21:13)
--- NOTE | 2019-06-03 18:16 | Progress Note ---
Assessment and Plan - Patient Problems (1) Exacerbation of multiple sclerosis Current Visit: Yes Status: Acute Plan to address problem: IV solumedrol 1 gm q 24 h x5 days status unchanged she is in day #2 solmedrol 1000 mg MRI is consistent with MS and active disease noted in brain with involvment of cervical and dorsal spine she could not tolerate tecfedera labs are still pending she is with primary MS and secondary progression involving brain and spinal cord pt; need follow up with neurology in a teaching center recommend Dr. Mario Segovia at [place] finish x3-5 days of Iv solmedrol then follow up with neurology review labs add Vit D daily 400 mg (2) Acute nonspecific chest pain with low risk of coronary artery disease Current Visit: Yes Status: Acute Plan to address problem: No further w/u (3) DVT prophylaxis Current Visit: Yes Status: Acute Plan to address problem: on Heparin and GI prophylaxis Subjective Date of service: 06/03/19 Principal diagnosis: MS exacerbation Interval history: Doing better. Objective - Constitutional Vitals: Vital Signs - 12hr 06/03/19 11:28 Temperature 98.3 F Pulse Rate 70 Respiratory 20 Rate Blood Pressure 116/57 O2 Sat by Pulse 96 Oximetry General appearance: Present: no acute distress, well-nourished - EENT Eyes: PERRL, EOM intact ENT: hearing intact, clear oral mucosa Ears: bilateral: normal - Neck Neck: supple, normal ROM - Respiratory Respiratory effort: normal Respiratory: bilateral: CTA - Breasts Breasts: normal - Cardiovascular Rhythm: regular Heart Sounds: Present: S1 & S2. Absent: gallop, rub Extremities: pulses intact, No edema, normal color, Full ROM - Gastrointestinal General gastrointestinal: Present: soft, non-tender, non-distended, normal bowel sounds - Genitourinary Female genitourinary: normal - Integumentary Integumentary: clear, warm, dry - Musculoskeletal Musculoskeletal: strength equal bilaterally, generalized weakness - Neurologic Neurologic: focal deficits (Both loqwer extremities), moves all extremities - Psychiatric Psychiatric: memory intact, appropriate mood/affect, intact judgment & insight - Allied health notes Allied health notes reviewed: nursing, PT, case management - Labs CBC & Chem 7: 06/03/19 04:37 06/03/19 04:37 Labs: Abnormal lab results 01/22/20 01/22/20 Range/Units 04:37 04:37 WBC 11.6 H (4.5-11.0) K/mm3 RDW 16.2 H (13.2-15.2) % Seg Neuts % (Manual) 90.0 H (40.0-70.0) % Lymphocytes % (Manual) 6.0 L (13.4-35.0) % Seg Neutrophils # Man 10.4 H (1.8-7.7) K/mm3 Lymphocytes # (Manual) 0.7 L (1.2-5.4) K/mm3 Creatinine 0.5 L (0.7-1.2) mg/dL Glucose 113 H (65-100) mg/dL
[2019-06-04] MEDS: HEPARIN 5,000 UNIT/1 ML VIAL SUB-Q SCH ×2 (09:46→22:37)
[2019-06-04] MEDS: CHOLECALCIFEROL (VIT D3) 400 UNIT TAB PO SCH (09:46)
[2019-06-04] MEDS: FAMOTIDINE 20 MG/2 ML INJ IV SCH (09:46)
[2019-06-04] MEDS: methylPREDNISolone Sod Suc 1,000 MG in SODIUM CHLORIDE 0.9% 250ML 250 ML IV SCH (09:51)
[2019-06-04] MEDS: FAMOTIDINE 20 MG TAB PO SCH (22:37)
[2019-06-05] MEDS: D5W/0.9% NACL 1,000 ML IV SCH ×2 (06:11→21:51)
[2019-06-05] MEDS: methylPREDNISolone Sod Suc 1,000 MG in SODIUM CHLORIDE 0.9% 250ML 250 ML IV SCH (09:08)
[2019-06-05] MEDS: FAMOTIDINE 20 MG TAB PO SCH ×2 (09:10→21:51)
[2019-06-05] MEDS: CHOLECALCIFEROL (VIT D3) 400 UNIT TAB PO SCH (09:10)
[2019-06-05] MEDS: HEPARIN 5,000 UNIT/1 ML VIAL SUB-Q SCH ×2 (09:10→21:50)
--- NOTE | 2019-06-05 10:53 | Progress Note ---
Assessment and Plan Assessment and plan: MS exacerbation. Neurology following. Continue Solu-Medrol 1 g for 3 to 5 days. Anticipate discharge in a.m. if continues to improve. MRI is consistent with MS and active disease noted in brain with involvment of cervical and dorsal spine she could not tolerate tecfedera DVT prophylaxis per History Interval history: No new issues overnight. Patient states that she feels improved Hospitalist Physical - Constitutional Vitals: Temp Pulse Resp BP Pulse Ox 98.6 F 63 18 113/65 99 06/05/19 06:00 06/05/19 06:00 06/05/19 06:00 06/05/19 06:00 06/05/19 06:00 General appearance: Present: no acute distress, well-nourished - EENT Eyes: Present: PERRL, EOM intact ENT: hearing intact, clear oral mucosa, dentition normal - Neck Neck: Present: supple, normal ROM - Respiratory Respiratory effort: normal Respiratory: bilateral: CTA - Cardiovascular Rhythm: regular Heart Sounds: Present: S1 & S2. Absent: gallop, rub - Extremities Extremities: no ischemia, No edema, Full ROM - Abdominal General gastrointestinal: soft, non-tender, non-distended, normal bowel sounds - Integumentary Integumentary: Present: clear, warm, dry - Neurologic Neurologic: CNII-XII intact, moves all extremities PAUL score - Paul Score Age > 65: (0) No Aspirin use within the Past 7 Days: (0) No 3 or more CAD Risk Factors: (0) No 2 or more Angina events in past 24 hrs: (0) No Known CAD with more than 50% Stenosis: (0) No Elevated Cardiac Markers: (0) No ST Deviation Greater than 0.5mm: (0) No PAUL Score: 0 Results - Labs CBC & Chem 7: 06/03/19 04:37 06/03/19 04:37 Labs: Laboratory Last Values WBC 11.6 K/mm3 (4.5-11.0) H 06/03/19 04:37 RBC 4.14 M/mm3 (3.65-5.03) 06/03/19 04:37 Hgb 12.0 gm/dl (10.1-14.3) 06/03/19 04:37 Hct 35.9 % (30.3-42.9) 06/03/19 04:37 MCV 87 fl (79-97) 06/03/19 04:37 MCH 29 pg (28-32) 06/03/19 04:37 MCHC 33 % (30-34) 06/03/19 04:37 RDW 16.2 % (13.2-15.2) H 06/03/19 04:37 Plt Count 287 K/mm3 (140-440) 06/03/19 04:37 Lymph % (Auto) 34.6 % (13.4-35.0) 06/02/19 05:30 Todd % (Auto) 8.0 % (0.0-7.3) H 06/02/19 05:30 Eos % (Auto) 0.7 % (0.0-4.3) 06/02/19 05:30 Baso % (Auto) 0.3 % (0.0-1.8) 06/02/19 05:30 Lymph # 2.9 K/mm3 (1.2-5.4) 06/02/19 05:30 Todd # 0.7 K/mm3 (0.0-0.8) 06/02/19 05:30 Eos # 0.1 K/mm3 (0.0-0.4) 06/02/19 05:30 Baso # 0.0 K/mm3 (0.0-0.1) 06/02/19 05:30 Add Manual Diff Complete 06/03/19 04:37 Total Counted 100 06/03/19 04:37 Seg Neutrophils % Customer Relations Representative 06/03/19 04:37 Seg Neuts % (Manual) 90.0 % (40.0-70.0) H 06/03/19 04:37 Band Neutrophils % 0 % 06/03/19 04:37 Lymphocytes % (Manual) 6.0 % (13.4-35.0) L 06/03/19 04:37 Reactive Lymphs % (Man) 0 % 06/03/19 04:37 Monocytes % (Manual) 4.0 % (0.0-7.3) 06/03/19 04:37 Eosinophils % (Manual) 0 % (0.0-4.3) 06/03/19 04:37 Basophils % (Manual) 0 % (0.0-1.8) 06/03/19 04:37 Metamyelocytes % 0 % 06/03/19 04:37 Myelocytes % 0 % 06/03/19 04:37 Promyelocytes % 0 % 06/03/19 04:37 Blast Cells % 0 % 06/03/19 04:37 Nucleated RBC % Not Reportable 06/03/19 04:37 Seg Neutrophils # 4.7 K/mm3 (1.8-7.7) 06/02/19 05:30 Seg Neutrophils # Man 10.4 K/mm3 (1.8-7.7) H 06/03/19 04:37 Band Neutrophils # 0.0 K/mm3 06/03/19 04:37 Lymphocytes # (Manual) 0.7 K/mm3 (1.2-5.4) L 06/03/19 04:37 Abs React Lymphs (Man) 0.0 K/mm3 06/03/19 04:37 Monocytes # (Manual) 0.5 K/mm3 (0.0-0.8) 06/03/19 04:37 Eosinophils # (Manual) 0.0 K/mm3 (0.0-0.4) 06/03/19 04:37 Basophils # (Manual) 0.0 K/mm3 (0.0-0.1) 06/03/19 04:37 Metamyelocytes # 0.0 K/mm3 06/03/19 04:37 Myelocytes # 0.0 K/mm3 06/03/19 04:37 Promyelocytes # 0.0 K/mm3 06/03/19 04:37 Blast Cells # 0.0 K/mm3 06/03/19 04:37 WBC Morphology Not Reportable 06/03/19 04:37 Hypersegmented Neuts Not Reportable 06/03/19 04:37 Hyposegmented Neuts Not Reportable 06/03/19 04:37 Hypogranular Neuts Not Reportable 06/03/19 04:37 Smudge Cells Not Reportable 06/03/19 04:37 Toxic Granulation Not Reportable 06/03/19 04:37 Toxic Vacuolation Not Reportable 06/03/19 04:37 Dohle Bodies Not Reportable 06/03/19 04:37 Pelger-Huet Anomaly Not Reportable 06/03/19 04:37 Noah Rods Not Reportable 06/03/19 04:37 Platelet Estimate Consistent w auto 06/03/19 04:37 Clumped Platelets Not Reportable 06/03/19 04:37 Plt Clumps, EDTA Not Reportable 06/03/19 04:37 Large Platelets Not Reportable 06/03/19 04:37 Giant Platelets Not Reportable 06/03/19 04:37 Platelet Satelliting Not Reportable 06/03/19 04:37 Plt Morphology Comment Not Reportable 06/03/19 04:37 RBC Morphology Normal 06/03/19 04:37 Dimorphic RBCs Not Reportable 06/03/19 04:37 Polychromasia Not Reportable 06/03/19 04:37 Hypochromasia Not Reportable 06/03/19 04:37 Poikilocytosis Not Reportable 06/03/19 04:37 Anisocytosis Not Reportable 06/03/19 04:37 Microcytosis Not Reportable 06/03/19 04:37 Macrocytosis Not Reportable 06/03/19 04:37 Spherocytes Not Reportable 06/03/19 04:37 Pappenheimer Bodies Not Reportable 06/03/19 04:37 Sickle Cells Not Reportable 06/03/19 04:37 Target Cells Not Reportable 06/03/19 04:37 Tear Drop Cells Not Reportable 06/03/19 04:37 Ovalocytes Not Reportable 06/03/19 04:37 Helmet Cells Not Reportable 06/03/19 04:37 [place] Bodies Not Reportable 06/03/19 04:37 [place] Rings Not Reportable 06/03/19 04:37 Hemanth Cells Not Reportable 06/03/19 04:37 Bite Cells Not Reportable 06/03/19 04:37 Crenated Cell Not Reportable 06/03/19 04:37 Elliptocytes Not Reportable 06/03/19 04:37 Acanthocytes (Spur) Not Reportable 06/03/19 04:37 Rouleaux Not Reportable 06/03/19 04:37 Hemoglobin C Crystals Not Reportable 06/03/19 04:37 Schistocytes Not Reportable 06/03/19 04:37 Malaria parasites Not Reportable 06/03/19 04:37 ESR 4 mm/Hr (0-20) 06/02/19 12:00 Doni Bodies Not Reportable 06/03/19 04:37 Hem Pathologist Commnt No 06/03/19 04:37 D-Dimer 224.77 ng/mlDDU (0-234) 06/01/19 15:32 Sodium 140 mmol/L (137-145) 06/03/19 04:37 Potassium 4.2 mmol/L (3.6-5.0) 06/03/19 04:37 Chloride 104.5 mmol/L (98-107) 06/03/19 04:37 Carbon Dioxide 23 mmol/L (22-30) 06/03/19 04:37 Anion Gap 17 mmol/L 06/03/19 04:37 BUN 10 mg/dL (7-17) 06/03/19 04:37 Creatinine 0.5 mg/dL (0.7-1.2) L 06/03/19 04:37 Estimated GFR > 60 ml/min 06/03/19 04:37 BUN/Creatinine Ratio 20 % 06/03/19 04:37 Glucose 113 mg/dL (65-100) H 06/03/19 04:37 Hemoglobin A1c 4.9 % (4-6) 06/02/19 05:30 Calcium 9.1 mg/dL (8.4-10.2) 06/03/19 04:37 Total Bilirubin 0.20 mg/dL (0.1-1.2) 06/02/19 05:30 AST 11 units/L (5-40) 06/02/19 05:30 ALT 7 units/L (7-56) 06/02/19 05:30 Alkaline Phosphatase 41 units/L (35-129) 06/02/19 05:30 Troponin T < 0.010 ng/mL (0.00-0.029) 06/01/19 15:32 Total Protein 5.9 g/dL (6.3-8.2) L 06/02/19 05:30 Albumin 3.4 g/dL (3.9-5) L 06/02/19 05:30 Albumin/Globulin Ratio 1.4 % 06/02/19 05:30 Vitamin B12 261.4 pg/mL (211-911) 06/02/19 12:00 Urine Color Yellow (Yellow) 06/01/19 14:59 Urine Turbidity Clear (Clear) 06/01/19 14:59 Urine pH 6.0 (5.0-7.0) 06/01/19 14:59 Ur Specific [place] 1.029 (1.003-1.030) 06/01/19 14:59 Urine Protein <15 mg/dl mg/dL (Negative) 06/01/19 14:59 Urine Glucose (UA) Neg mg/dL (Negative) 06/01/19 14:59 Urine Ketones Neg mg/dL (Negative) 06/01/19 14:59 Urine Blood Mod (Negative) 06/01/19 14:59 Urine Nitrite Neg (Negative) 06/01/19 14:59 Urine Bilirubin Neg (Negative) 06/01/19 14:59 Urine Urobilinogen < 2.0 mg/dL (<2.0) 06/01/19 14:59 Ur Leukocyte Esterase Neg (Negative) 06/01/19 14:59 Urine WBC (Auto) 1.0 /HPF (0.0-6.0) 06/01/19 14:59 Urine RBC (Auto) 2.0 /HPF (0.0-6.0) 06/01/19 14:59 U Epithel Cells (Auto) 2.0 /HPF (0-13.0) 06/01/19 14:59 Urine Mucus 1+ /HPF 06/01/19 14:59 Urine HCG, Qual Negative (Negative) 06/01/19 14:59 Active Medications - Current Medications Current Medications: Generic Name Dose Route Start Last Admin Trade Name Freq PRN Reason Stop Dose Admin Acetaminophen 650 mg 06/01/19 22:07 06/03/19 21:10 Tylenol PO 650 mg Q4H PRN Administration Pain MILD(1-3)/Fever >100.5/CALDWELL Cholecalciferol 400 unit 06/03/19 10:00 06/05/19 09:10 Vitamin D3 PO 400 unit QDAY JIE Administration Famotidine 20 mg 06/04/19 22:00 06/05/19 09:10 Pepcid PO 20 mg BID JIE Administration Heparin Sodium (Porcine) 5,000 unit 06/01/19 22:15 06/05/19 09:10 Heparin SUB-Q 5,000 unit Q12HR JIE Administration Hydromorphone HCl 0.5 mg 06/01/19 22:07 Dilaudid IV Q3H PRN Pain , Severe (7-10) Dextrose/Sodium Chloride 1,000 mls @ 75 mls/hr 06/01/19 23:00 06/05/19 06:11 D5ns IV 75 mls/hr DIRECT JIE Administration Methylprednisolone Sodium 250 mls @ 250 mls/hr 06/02/19 08:00 06/05/19 09:08 Succinate 1,000 mg/ Sodium IV 06/06/19 08:59 250 mls/hr Chloride Q24H JIE Administration Ondansetron HCl 4 mg 06/01/19 22:07 Zofran IV Q8H PRN Nausea And Vomiting Sodium Chloride 10 ml 06/02/19 10:00 06/05/19 09:12 Sodium Chloride Flush Syringe 10 Ml IV Not Given BID JIE Sodium Chloride 10 ml 06/01/19 22:07 06/04/19 22:38 Sodium Chloride Flush Syringe 10 Ml IV 10 ml PRN PRN Administration LINE FLUSH
[2019-06-05] MEDS: HYDROmorphone 1 MG/1 ML INJ IV PRN (22:02)
[2019-06-06 01:18] LABS: Albumin 3.5 g/dL (3.8-4.8); Gamma Globulin 0.9 g/dL (0.8-1.7)
[2019-06-06] MEDS: HYDROmorphone 1 MG/1 ML INJ IV PRN (06:04)
[2019-06-06 06:33] VITALS: BP 133/79
--- NOTE | 2019-06-06 09:47 | Discharge Summary ---
Providers - Providers Date of Admission: 06/02/19 16:12 Date of discharge: 06/06/19 Attending physician: OSWALDO CASTAÑEDA 06/01/19 22:07 Consult to Physician [CONS] Routine Comment: Consulting Provider: JAIDA FORRESTER Physician Instructions: Reason For Exam: MS?? 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 The patient reported that she was diagnosed with MS June 2018 in [place]. Patient reports that she underwent MRI brain and LP for diagnosis and was started on tecfedera but she could not take due to side of nausea she stopped medication after a month , she denied follow up with neurology. The patient reported that since last year she has had at least 6 relapses with treatment x 3 with IV steroid. Neurology saw the patient in consultation and recommended Solu-Medrol for 3-5 days. Neurology also order MRI of the brain cervical and thoracic spine which revealed findings consistent with MS and active disease noted in brain with involvment of cervical and dorsal spine. Neurology also recommended further follow-up at [facility] with Dr. Bola Segovia. Patient has returned back to her baseline neurological function. Therefore, patient will be discharged home and is to follow-up as an outpatient. Dedicated discharge time 32 minutes. Disposition: - TO HOME OR SELFCARE Time spent for discharge: 32 - Discharge Diagnoses (1) Exacerbation of multiple sclerosis Status: Acute Core Measure Documentation - Palliative Care Palliative Care/ Comfort Measures: Not Applicable - Core Measures Any of the following diagnoses?: none Exam - Constitutional Vitals: Temp Pulse Resp BP Pulse Ox 98.2 F 53 L 18 133/79 96 06/06/19 05:26 06/06/19 05:26 06/06/19 05:26 06/06/19 05:26 06/06/19 05:26 General appearance: Present: no acute distress, well-nourished - EENT Eyes: Present: PERRL ENT: hearing intact, clear oral mucosa - Neck Neck: Present: supple, normal ROM - Respiratory Respiratory effort: normal Respiratory: bilateral: CTA - Cardiovascular Heart Sounds: Present: S1 & S2. Absent: rub, click - Extremities Extremities: pulses symmetrical, No edema Peripheral Pulses: within normal limits - Abdominal General gastrointestinal: Present: soft, non-tender, non-distended, normal bowel sounds Female genitourinary: Present: normal - Integumentary Integumentary: Present: clear, warm, dry - Musculoskeletal Musculoskeletal: gait normal, strength equal bilaterally - Psychiatric Psychiatric: appropriate mood/affect, intact judgment & insight - Neurologic Neurologic: CNII-XII intact, moves all extremities Plan Activity: advance as tolerated Weight Bearing Status: Weight Bear as Tolerated Diet: regular Follow up with: PRIMARY CARE, [Primary Care Provider] - 7 Days Prescriptions: Famotidine [Pepcid] 20 mg PO BID #60 tablet Cholecalciferol Vit D3 [Vitamin D3 400 UNIT TAB] 400 unit PO QDAY #30 tablet
[2019-06-06] MEDS: methylPREDNISolone Sod Suc 1,000 MG in SODIUM CHLORIDE 0.9% 250ML 250 ML IV SCH (09:55)
[2019-06-06] MEDS: FAMOTIDINE 20 MG TAB PO SCH (10:14)
[2019-06-06] MEDS: CHOLECALCIFEROL (VIT D3) 400 UNIT TAB PO SCH (10:14)
[2019-06-06] MEDS: HEPARIN 5,000 UNIT/1 ML VIAL SUB-Q SCH (10:16)
--- NOTE | 2019-06-06 21:46 | Progress Note ---
Assessment and Plan - Patient Problems (1) Exacerbation of multiple sclerosis Status: Acute Plan to address problem: IV solumedrol 1 gm q 24 h x5 days status unchanged she is in day #3 solmedrol 1000 mg MRI is consistent with MS and active disease noted in brain with involvment of cervical and dorsal spine she could not tolerate tecfedera she is with primary MS and secondary progression involving brain and spinal cord pt; need follow up with [facility]y in a [facility] recommend Dr. Mario Segovia at [facility] finish x3-5 days of Iv solmedrol then follow up with neurology review labs (2) Acute nonspecific chest pain with low risk of coronary artery disease Status: Acute Plan to address problem: No further w/u (3) DVT prophylaxis Status: Acute Plan to address problem: on Heparin and GI prophylaxis Subjective Date of service: 06/04/19 Principal diagnosis: MS exacerbation Interval history: Doing better. Objective - Constitutional General appearance: Present: no acute distress, well-nourished - EENT Eyes: PERRL, EOM intact ENT: hearing intact, clear oral mucosa Ears: bilateral: normal - Neck Neck: supple, normal ROM - Respiratory Respiratory effort: normal Respiratory: bilateral: CTA - Breasts Breasts: normal - Cardiovascular Heart rate: 78 Rhythm: regular Heart Sounds: Present: S1 & S2. Absent: gallop, rub Extremities: pulses intact, No edema, normal color, Full ROM - Gastrointestinal General gastrointestinal: Present: soft, non-tender, non-distended, normal bowel sounds - Genitourinary Female genitourinary: normal - Integumentary Integumentary: clear, warm, dry - Musculoskeletal Musculoskeletal: 1, strength equal bilaterally - Neurologic Neurologic: moves all extremities - Psychiatric Psychiatric: memory intact, appropriate mood/affect, intact judgment & insight - Allied health notes Allied health notes reviewed: nursing, case management - Labs CBC & Chem 7: 06/03/19 04:37 06/03/19 04:37 Labs: Abnormal lab results 06/02/19 Range/Units 12:00 Serum Total Protein 5.7 L (6.1-8.1) g/dL Albumin 3.5 L (3.8-4.8) g/dL
[2019-06-09 21:49] LABS: ANA Screen, IFA Positive (Negative)
== END 2019-06-06 11:55 | disposition home or self-care (01) | DRG 60 ==
LOC: ED 12:11 → 3A 16:12 → OBSVTOIN 06-02 16:12
PROVIDERS: ADMIT Internal Medicine; ATTEND Hospitalist
DX: G35 Multiple sclerosis (principal); F17.210 Nicotine dependence, cigarettes, uncomplicated; H53.8 Other visual disturbances; R07.89 Other chest pain; Z90.10 Acquired absence of unspecified breast and nipple; Z82.49 Family history of ischemic heart disease and other diseases of the circulatory system
CPT/HCPCS: 36415; 70450; 70553; 71046; 72156; 72157; 80048; 80053; 81001; 81025; 82607; 82652; 83036; 84165; 84484; 85007; 85025; 85379; 85652; 86038; 87116; 87476; 93005; 93010; 96374; G0378; A9577; J1170; J1644; J2930; J7042; J7050